=== PATIENT | male | born 1935 | race Caucasian/White ===

== ENCOUNTER → 2020-05-21 14:28 | Outpatient (BNVA) | payer MEDICARE, SELFPAY | PROVIDERS: PCP Internal Medicine; Visit Provider Internal Medicine | DX: I25.10 Atherosclerotic heart disease of native coronary artery without angina pectoris (principal); R77.8 Other specified abnormalities of plasma proteins; E78.5 Hyperlipidemia, unspecified | CPT/HCPCS: 93005; 99212 ==

== ENCOUNTER 2024-11-03 13:00 | Observation (INO) | payer MEDICARE, MEDICAID, SELFPAY ==
--- NOTE | ~2024-11-03 | XR_ITS ---
EXAMINATION: XR CHEST CLINICAL INFORMATION: AMS COMPARISON: March 14, 2018. TECHNIQUE: 2 views of the chest were obtained. FINDINGS: Mild prominence of the interstitial markings. No consolidation pleural effusion or pneumothorax. Cardiomediastinal silhouette appears mildly prominent with a round apex. Calcified plaque thoracic aorta and tortuosity. Multilevel thoracolumbar spondylosis with likely old wedge-shaped compression deformities in the mid to lower thoracic spine. Osteopenia versus osteoporosis. Degenerative changes in the shoulders with joint space narrowing, bilaterally. XR/XR chest 2V IMPRESSION: Mild interstitial lung edema in the correct clinical settings. 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 Multilevel spondylosis and old compression fracture deformities. Degenerative changes both shoulders suggesting chronic rotator cuff tendon tear. Electronically signed by: Jarod Baeza MD 11/03/2024 03:53 PM EDT
--- NOTE | ~2024-11-03 | CT_ITS ---
EXAMINATION: CT HEAD WITHOUT CONTRAST CLINICAL INFORMATION: AMS COMPARISON: September 05, 2012. TECHNIQUE: Contiguous axial imaging was performed from the skull base to vertex without intravenous administration of contrast. This CT examination was performed using dose optimization techniques as appropriate, variously including the following: *Automated exposure control *Adjustment of mA and/or kV according to patient size (this includes techniques or standardized protocols for targeted exams where dose is matched to indication/reason for exam; i.e. extremities or head) *Use of iterative reconstruction technique DLP: 569 mGy-cm FINDINGS: No acute intracranial hemorrhage, mass effect, midline shift, hydrocephalus or herniation. Prominence of the extra-axial CSF spaces cerebral sulci and ventricles likely central volume loss. Bilateral multifocal patchy deep periventricular white matter hypodensities involving centrum semiovale and potter radiata. Posterior cranial fossa contents demonstrated no acute hemorrhage or mass effect. [place]arg[place]-white matter differentiation is normal. Sellar/suprasellar region demonstrated no gross masses. Cerebellar tonsils demonstrated normal position. No air-fluid levels in the paranasal sinuses. Tympanic cavities and mastoid cells are aerated. Pneumatized right petrous apex, congenital. CT/CT head/brain wo IV con IMPRESSION: No acute intracranial hemorrhage. Small vessel occlusive disease. Mild bifrontal atrophy Electronically signed by: Jarod Baeza MD 11/03/2024 04:05 PM EDT
[2024-11-03 13:10] VITALS: BP 118/71; BP 125/63; PULSE 58; PULSE 62; RESP 16; TEMP 36.4; O2SAT 96; O2SAT 97; BMI 21.5
[2024-11-03 13:17] LABS: Glucose, Whole Blood 145 mg/dL (60-115)
[2024-11-03 13:36] VITALS: BP 125/63; PULSE 58; RESP 16; TEMP 36.4; O2SAT 97
--- NOTE | 2024-11-03 13:48 | ED_ITS ---
HPI - General Adult General Chief complaint: Altered Mental Status Stated complaint: AMS Time Seen by Provider: 11/03/24 13:48 Source: patient, EMS, RN notes reviewed and old records reviewed Mode of arrival: EMS Limitations: altered mental status History of Present Illness ED Provider: Jana HPI narrative: Patient is an 88-year-old male with history of alcohol dependence in remission, dysphagia, epilepsy, malignant neoplasm of glottis, unspecified dementia, anemia, atherosclerotic heart disease, hyperlipidemia, major depressive disorder, prior [place] presenting to the emergency department from [facility] after staff noted patient to be less responsive than baseline. Staff did report to EMS that patient is somewhat drowsy at baseline, however. His point of care glucose was noted to be 43 at that time and staff there administered 2 tubes of oral glucose. This increased his point of care glucose 263. EMS then administered D10 with improvement of point of care glucose to 128. Patient denies any pain or any other physical complaints currently. He is very drowsy, only wakes briefly to voice, assessment limited by this. MD complaint: AMS Related Data Home Medications ?Medication ?Instructions ?Recorded ?Confirmed acetaminophen 325 mg capsule 325 mg PO QID PRN 1 05/21/20 (Tylenol) aspirin 81 mg tablet,delayed 81 mg PO DAILY 05/21/20 0 05/21/20 release (Adult Low Dose Aspirin) atorvastatin 40 mg tablet 40 mg PO DAILY 05/21/2005/06 levetiracetam 500 mg tablet 500 mg PO BID 05/21/20 metoprolol tartrate 25 mg tablet 25 mg PO BID 05/21/20 05/21/20 sennosides 8.6 mg capsule (senna) 8.6 mg PO DAILY 05/0605/21/20 Allergies Allergy/AdvReac Type Severity Reaction Status Date / Time No Known Allergies (No Known Allergy Mild NOT Verified 11/03/24 13:12 Allergies*) APPLICABLE Review of Systems 2 Review of Systems: As per HPI Yes all other systems are reviewed and are negative Constitutional: Constitutional: Reports as per HPI [facility] Past Medical History Medical History (Updated 11/03/24 @ 17:20 by Sheyla Bates NP) Other and unspecified hyperlipidemia Atherosclerotic cardiovascular disease Elevated troponin Social History Social History (Updated 05/21/20 @ 14:36 by TANISHA Walter) Smoked in Last 30 Days: No Use of substances other than those prescribed or required for medical reasons: No Advance Directives: No Advance Directives Information Provided: No Do you have a plan to hurt others: No Plan Physical Exam ED Vital Signs: Vital Signs - 24 hr 11/03/24 13:10 11/03/24 13:36 11/03/24 16:06 Temperature 97.5 F 97.5 F 97.8 F Pulse Rate 58 58 57 Respiratory Rate 16 16 16 Blood Pressure 125/63 125/63 168/79 H Pulse Oximetry 97 97 97 Oxygen Delivery Method Nasal Cannula Nasal Cannula Room Air BMI result Body Mass Index 21.5 Vital signs have been reviewed and appear to be correct. Blood pressure normal. Heart rate normal. Respiratory rate normal. Temperature normal. Oxygen saturation normal. Const General: cooperative, no acute distress and ill appearing chronically Orientation/consciousness: oriented to person (baseline) Limitations: altered mental status HENMT Head: Yes normocephalic and Yes atraumatic Ears: external ears normal General nose exam: Normal external nose present Face and sinus: Yes face symmetric Mouth: oropharynx normal and moist mucous membranes Throat: Yes uvula midline Eyes Pupils: Equal, round and reactive pupils present Neck Neck: Yes normal visual inspection and Yes supple Resp Effort & Inspection: normal respiratory effort and able to speak in complete sentences Auscultation: clear to auscultation bilaterally Cardio Rate: regular rate Rhythm: regular rhythm Heart sounds: S1 normal heart sound present and S2 normal heart sound present GI Palpation (GI): Soft to palpation and nontender Auscultation: normoactive bowel sounds General: Yes no CVA tenderness Back/Spine/Pelvis Back: no CVA tenderness Skin General skin exam: elasticity normal and turgor normal Neuro General: oriented to person (baseline), moves all extremities, no focal motor deficits and CN's II-XI intact bilaterally Cranial nerves: Yes Equal, round and reactive pupils present Cognition (Neuro): normal cognition Extrem General: Yes full ROM, Yes no pedal edema and Yes no calf tenderness Psych Mental Status: mental status grossly normal Affect: normal affect Thought process: Normal thought process present Medical Decision Making Medical Decision Making MDM Narrative: Patient is a 69-year-old right-hand dominant Syriac-speaking male presenting to the emergency department with complaint of laceration to left hand which occurred 1 hour prior to arrival. On exam patient is awake, A+Ox3, VS WNL, afebrile, no focal neurological deficits, physical exam findings as above. Given reported symptoms and physical exam findings, initial differential includes but is not limited to hypoglycemia, other electrolyte abnormality, UTI, pneumonia, viral illness. Labs notable for no leukocytosis, no anemia, slight hyponatremia, normal glucose, no other significant electrolyte abnormalities, negative troponin. Viral serology negative. Urinalysis is without evidence of infection. X-ray chest notable for mild interstitial lung edema. My interpretation is in agreement with the radiologist's interpretation. Mental status improved while patient in the ED. Rectal temp normal. Repeat glucose of 56, will provide p.o. food and drink and recheck glucose. Case discussed with attending, Dr. Lucero, who is in agreement with this plan. Repeat glucose after eating and drinking was 58. Case discussed with SABA Evangelista hospitalist who accept patient for obs admission. Differential Diagnosis Differential Diagnoses: The differential diagnosis associated with the presentation includes As per [facility] Admission/Observation Consideration of admission/observation: Escalation of care including admission/observation considered Patient would have been admitted to the hospital had their clinical presentation warranted hospital admission. Consult Healthcare Provider Management of the patient was discussed with: Hospitalist Lab Data [facility] Lab Attestation statement: I reviewed the patient's lab results. as per [facility] 11/03/24 14:25 11/03/24 14:25 Labs: Lab Results 11/03/24 11/03/24 11/03/24 Range/Units 13:13 14:25 16:08 WBC 4.6 L (4.8-10.8) X10*3/uL RBC 4.12 L (4.60-5.80) X10*6/uL Hgb 12.8 L (14.0-18.0) g/dl Hct 36.3 L (42.0-52.0) % MCV 88.1 (80.0-98.0) fL MCH 31.1 (27.0-33.0) pg MCHC 35.3 (31.0-36.0) g/dl RDW 15.0 (11.0-16.0) % Plt Count 144 L (160-400) X10*3/uL MPV 10.8 (9.4-12.4) fL Immature Gran % (Auto) 0.4 (0.0-0.4) % Neut % (Auto) 84.1 H (45-73) % Lymph % (Auto) 7.3 L (20-40) % [place] % (Auto) 7.6 (2-11) % Eos % (Auto) 0.2 (0-4) % Baso % (Auto) 0.4 (0-2) % Lymph # (Auto) 0.3 L (1.2-4.9) X10*3/uL [place] # (Auto) 0.4 (0.1-1.2) X10*3/uL Eos # (Auto) 0.0 (0.0-0.4) X10*3/uL Baso # (Auto) 0.0 (0.0-0.2) X10*3/uL Abs Immat Gran (auto) 0.02 (0.00-0.03) X10*3/uL Absolute Neuts (auto) 3.9 (2.0-8.3) x10*3/uL Absolute Nucleated RBC 0.000 (0.0-0.012) X10*3/uL Nucleated RBC % (auto) 0.0 (0.0-0.2) /100WBC Sodium 132 L (135-145) mmol/L Potassium 3.8 (3.3-5.1) mmol/L Chloride 100 (96-108) mmol/L Carbon Dioxide 27 (22-29) mmol/L Anion Gap 9 L (12-20) BUN 15 (9-16) mg/dL Creatinine 0.72 (0.5-1.4) mg/dL Estim Creat Clear Calc 56.8 Estimated GFR > 60 POC Glucose 145 H (60-115) mg/dL Random Glucose 104 (60-115) mg/dL Lactic Acid 1.7 (0.5-2.0) mmol/L Calcium 8.6 (8.4-10.2) mg/dL Total Bilirubin 0.6 (0.0-1.0) mg/dL AST 23 (5-37) U/L ALT 15 (0-40) U/L Alkaline Phosphatase 79 (39-117) U/L Troponin I High Sens 5.1 (<3.5-35.0) ng/L Total Protein 7.0 (6.5-8.0) g/dL Albumin 4.2 (3.5-5.0) g/dL Urine Color Yellow Urine Appearance Clear Urine pH 7.0 (5.0-9.0) Ur Specific [place] 1.020 (1.005-1.025) Urine Protein Negative (Neg-Trace) mg/dL Urine Glucose (UA) 250 H (Negative) mg/dL Urine Ketones Negative (Negative) mg/dL Urine Blood Negative (Negative) Urine Nitrite Negative (Negative) Ur Leukocyte Esterase Negative (Negative) Urine Opiates Screen Not Detected (Not Detect) Ur Buprenorphine Scrn Not Detected (Not Detect) ng/mL Ur Oxycodone Screen Not Detected (Not Detect) ng/mL Urine Methadone Screen Not Detected (Not Detect) ng/mL Urine Fentanyl Screen Not Detected (Not Detect) Ur Barbiturates Screen Not Detected (Not Detect) Ur Phencyclidine Scrn Not Detected (Not Detect) Ur Amphetamines Screen Not Detected (Not Detect) U Benzodiazepines Scrn Not Detected (Not Detect) Urine Cocaine Screen Not Detected (Not Detect) U Marijuana (THC) Screen Not Detected (Not Detect) Ethyl Alcohol < 10 mg/dL Influenza Type A (PCR) NEGATIVE (Negative) Influenza Type B (PCR) NEGATIVE (Negative) RSV RNA Qual (PCR) NEGATIVE (Negative) SARS-CoV-2 RNA (RT-PCR) NEGATIVE (Negative) 11/03/24 11/03/24 Range/Units 17:11 17:42 WBC (4.8-10.8) X10*3/uL RBC (4.60-5.80) X10*6/uL Hgb (14.0-18.0) g/dl Hct (42.0-52.0) % MCV (80.0-98.0) fL MCH (27.0-33.0) pg MCHC (31.0-36.0) g/dl RDW (11.0-16.0) % Plt Count (160-400) X10*3/uL MPV (9.4-12.4) fL Immature Gran % (Auto) (0.0-0.4) % Neut % (Auto) (45-73) % Lymph % (Auto) (20-40) % [place] % (Auto) (2-11) % Eos % (Auto) (0-4) % Baso % (Auto) (0-2) % Lymph # (Auto) (1.2-4.9) X10*3/uL [place] # (Auto) (0.1-1.2) X10*3/uL Eos # (Auto) (0.0-0.4) X10*3/uL Baso # (Auto) (0.0-0.2) X10*3/uL Abs Immat Gran (auto) (0.00-0.03) X10*3/uL Absolute Neuts (auto) (2.0-8.3) x10*3/uL Absolute Nucleated RBC (0.0-0.012) X10*3/uL Nucleated RBC % (auto) (0.0-0.2) /100WBC Sodium (135-145) mmol/L Potassium (3.3-5.1) mmol/L Chloride (96-108) mmol/L Carbon Dioxide (22-29) mmol/L Anion Gap (12-20) BUN (9-16) mg/dL Creatinine (0.5-1.4) mg/dL Estim Creat Clear Calc Estimated GFR POC Glucose 52 L* 58 L* (60-115) mg/dL Random Glucose (60-115) mg/dL Lactic Acid (0.5-2.0) mmol/L Calcium (8.4-10.2) mg/dL Total Bilirubin (0.0-1.0) mg/dL AST (5-37) U/L ALT (0-40) U/L Alkaline Phosphatase (39-117) U/L Troponin I High Sens (<3.5-35.0) ng/L Total Protein (6.5-8.0) g/dL Albumin (3.5-5.0) g/dL Urine Color Urine Appearance Urine pH (5.0-9.0) Ur Specific [place] (1.005-1.025) Urine Protein (Neg-Trace) mg/dL Urine Glucose (UA) (Negative) mg/dL Urine Ketones (Negative) mg/dL Urine Blood (Negative) Urine Nitrite (Negative) Ur Leukocyte Esterase (Negative) Urine Opiates Screen (Not Detect) Ur Buprenorphine Scrn (Not Detect) ng/mL Ur Oxycodone Screen (Not Detect) ng/mL Urine Methadone Screen (Not Detect) ng/mL Urine Fentanyl Screen (Not Detect) Ur Barbiturates Screen (Not Detect) Ur Phencyclidine Scrn (Not Detect) Ur Amphetamines Screen (Not Detect) U Benzodiazepines Scrn (Not Detect) Urine Cocaine Screen (Not Detect) U Marijuana (THC) Screen (Not Detect) Ethyl Alcohol mg/dL Influenza Type A (PCR) (Negative) Influenza Type B (PCR) (Negative) RSV RNA Qual (PCR) (Negative) SARS-CoV-2 RNA (RT-PCR) (Negative) Independent Interpretation I performed an independent interpretation of an: Plain X-Ray Interpretation: No evidence of pneumonia on chest x-ray Radiology Impression Discussion of test interpretation with radiology: I have reviewed the radiologist's reading. Radiologist Impression: XR/XR chest 2V IMPRESSION: Mild interstitial lung edema in the correct clinical settings. 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 Multilevel spondylosis and old compression fracture deformities. Degenerative changes both shoulders suggesting chronic rotator cuff tendon tear. External Record Review External record reviewed: Inpatient record, Office record and Outpatient record Critical Care Time Critical Care Time Critical Care Time: Yes Total Critical Care Time: 42 Attestation: I have personally provided critical care time exclusive of time spent on separately billable procedures. Time includes review of lab data, radiology results, discussion with consultants, and monitoring for potential decompensation. Intervention performed as documented. Discharge Plan Discharge Patient Disposition: Admitted As Inpatient Print Language: Syriac
[2024-11-03 14:31] LABS: MANUAL DIFF FLAG NO
[2024-11-03 14:37] LABS: Hematocrit 36.3 % (42.0-52.0); Hemoglobin 12.8 g/dl (14.0-18.0); Imm Gran Abs Auto 0.02 X10*3/uL (0.00-0.03); Imm Gran Pct Auto 0.4 % (0.0-0.4); Lymphocytes Absolute Auto 0.3 X10*3/uL (1.2-4.9); Mean Corpuscular HGB Conc 35.3 g/dl (31.0-36.0); Mean Corpuscular Hemoglobin 31.1 pg (27.0-33.0); Mean Corpuscular Volume 88.1 fL (80.0-98.0); NRBC Abs Auto 0.000 X10*3/uL (0.0-0.012); NRBC Pct Auto 0.0 /100WBC (0.0-0.2); Platelet Count 144 X10*3/uL (160-400); Red Blood Count 4.12 X10*6/uL (4.60-5.80); White Blood Count 4.6 X10*3/uL (4.8-10.8)
[2024-11-03 14:49] LABS: Alanine Aminotransferase 15 U/L (0-40); Albumin Level 4.2 g/dL (3.5-5.0); Alkaline Phosphatase 79 U/L (39-117); Anion Gap 9 (12-20); Aspartate Amino Transferase 23 U/L (5-37); Blood Urea Nitrogen 15 mg/dL (9-16); Calcium 8.6 mg/dL (8.4-10.2); Carbon Dioxide 27 mmol/L (22-29); Chloride 100 mmol/L (96-108); Creatinine Clr Calc Pharmacy 56.8; Estimated Glomerular Filt Rate > 60; Potassium 3.8 mmol/L (3.3-5.1); Sodium 132 mmol/L (135-145); Total Protein 7.0 g/dL (6.5-8.0)
[2024-11-03 14:56] LABS: Troponin-I High Sensitivity 5.1 ng/L (<3.5-35.0)
[2024-11-03 15:13] LABS: Resp Syncy Virus RNA Qual PCR NEGATIVE (Negative); SARS COV2 PCR INHOUSE NEGATIVE (Negative)
[2024-11-03 16:06] VITALS: BP 168/79; PULSE 57; RESP 16; TEMP 36.6; O2SAT 97
--- OUTSIDE RECORDS SUMMARY | 2024-11-03 16:15 | XMS_ITS | Encounter Summary ---
Author Organization [facility] Address [address] [place] [id number] Care Team Providers Care Radio Engineer Name Role Phone Yifan Lizama MD Primary Care Provider [phone] Encounter Details Date Type Department Care Team (Late st Contact Info) Description 03/28/2024 Lab Requisition [facility] - Main Lab [address] [place] [address] Yifan Lizama MD [address] [facility] [address] [place], [phone] Unspecified convulsions (CMS/HCC V24, CMS/HCC V28) Social History Tobacco Use Types Packs/Day Years Used Date Smoking Tobacco: Never Assessed Sex and Gender Information Value Date Recorded Sex Assigned at Not on file Legal Sex Male 9:58 AM EST Gender Identity Not on file Sexual Orientation Not on file documented as of this encounter Plan of Treatment Not on file documented as of this encounter Procedures Procedure Name Priority Date/Time Associated Diagnosis Comments AMMONIA Routine 03/28/2024 11:21 AM EST Unspecified convulsions (CMS/HCC) documented in this encounter Results * Ammonia (03/28/2024 11:21 AM EST) Ammonia 29 11 - 35 mcmol/L LAB CHEMISTRY METHOD 03/28/2024 12:45 PM EST [facility] Blood Venous blood specimen / Unknown Venipuncture / Unknown 03/28/2024 11:21 AM EST 03/28/2024 12:15 PM EST us Yifan Lizama MD LAB BLOOD ORDERABLES Final Resul t [facility] [address] [place] [address], documented in this encounter Visit Diagnoses Diagnosis Unspecified convulsions (CMS/HCC V24, CMS/HCC V28) documented in this encounter Care Teams Radio Engineer Relationship Specialty Start Date End Date Yifan Lizama MD [address] [place] [address], [phone] PCP - General Family Medicine 04/03/24 documented as of this encounter
--- OUTSIDE RECORDS SUMMARY | 2024-11-03 16:15 | XMS_ITS | Clinical Summary ---
Author Organization [facility] Address [address] [place] [address] Care Team Providers Care Loan Auditor Name Role Phone Unavailable Primary Care Provider Unavailabl e Social History Tobacco Use Types Packs/Day Years Used Date Smoking Tobacco: Never Assessed Sex and Gender Information Value Date Recorded Sex Assigned at Not on file Gender Identity Not on file Sexual Orientation Not on file Plan of Treatment Not on file
[2024-11-03 16:16] LABS: Appearance Urine Clear; Glucose Urine UA 250 mg/dL (Negative); PH 7.0 (5.0-9.0); Specific Gravity - Urine 1.020 (1.005-1.025)
[2024-11-03 16:34] LABS: Cannabinoid Screen Urine Not Detected (Not Detect)
[2024-11-03 17:17] LABS: Glucose, Whole Blood 52 mg/dL (60-115)
[2024-11-03 17:46] LABS: Glucose, Whole Blood 58 mg/dL (60-115)
--- NOTE | 2024-11-03 18:07 | PHA.MEDREC ---
Addendum entered by Ingris Reyes RPh 11/03/24 18:44: Reviewed by [facility] Original Note: Pharmacy Consult ? Medication Reconciliation Pharmacy has completed the medication reconciliation. Utilized list from [facility].
--- NOTE | 2024-11-03 18:17 | PM.IMHP ---
History of Present Illness Date of Service: 11/03/24 Chief Complaint: Altered Mental Status 88-year-old male with advanced dementia, seizure disorder, GERD, coming from a fdc. Patient was brought in to be evaluated for altered mental status and was found to be hypoglycemic at the fdc. His sugar level was reported to be 43 and was given oral glucose with subsequent increase in sugar 263 he was then given a half an amp of D 50 with a glucose going up to 128. He was subsequently brought to the emergency room to be evaluated. Head CT showed no acute finding. Blood sugar dropped again to 52 and then 58. Emergency room treatment include dextrose 1 amp. Na started on a D10. He has no signs of infection. For retesting include TSH and hypoglycemia workup all pending. Patient does not have history of diabetes. He is hemodynamically stable with a normal temperature. Review of Systems Review of Systems: confused at baseline. Yes unobtainable due to endotracheal tube PMFSH Medical History (Updated 11/03/24 @ 17:20 by Sheyla Bates NP) Other and unspecified hyperlipidemia Atherosclerotic cardiovascular disease Elevated troponin Social History (Updated 05/21/20 @ 14:36 by TANISHA Walter) Household Members: Unknown / Unable to assess Housing: Unknown / Unable to assess Patient Tobacco Use Status: Tobacco use Unknown Smoked in Last 30 Days: No Use of substances other than those prescribed or required for medical reasons: No Currently Displaying Signs/Symptoms of Drug Intoxication Withdrawal: No Advance Directives: No Advance Directives Information Provided: No Do you have a plan to hurt others: No Plan Recently lost weight without trying: Unsure How much weight loss: Unsure Meds Allergies Allergy/AdvReac Type Severity Reaction Status Date / Time No Known Allergies (No Known Allergy Mild NOT Verified 11/03/24 13:12 Allergies*) APPLICABLE Active Medications: Current Medications Dextrose (D10) 1,000 mls @ 50 mls/hr IVCONT .Q20H [facility] Home Medications ?Medication ?Instructions ?Recorded ?Confirmed ?Last Taken ?Type aspirin 81 mg tablet,delayed 81 mg PO DAILY 05/21/20 11/03/24 Unknown History release (Adult Low Dose Aspirin) atorvastatin 40 mg tablet 40 mg PO DAILY 05/21/20 11/03/24 Unknown History metoprolol tartrate 25 mg tablet 25 mg PO BID 05/21/20 11/03/24 Unknown History sennosides 8.6 mg capsule (senna) 17.2 mg PO DAILY 05/21/20 11/03/24 Unknown History acetaminophen 325 mg tablet 650 mg PO Q6H PRN Fever/Pain 11/03/24 11/03/24 Unknown History acetaminophen 650 mg rectal 650 mg MA Q4H PRN Pain/Fever 11/03/24 11/03/24 Unknown History suppository bisacodyl 10 mg rectal suppository 10 mg MA DAILY PRN Constipation 11/03/24 11/03/24 Unknown History (Dulcolax (bisacodyl)) divalproex 500 mg tablet,delayed 500 mg PO BID 11/03/24 11/03/24 Unknown History release (Depakote) guaifenesin 100 mg/5 mL oral 200 mg PO Q4H PRN Cough 11/03/24 11/03/24 Unknown History liquid (Maricruz-Tussin) levetiracetam 1,000 mg tablet 1,000 mg PO BID 11/03/24 11/03/24 Unknown History levetiracetam 250 mg tablet 250 mg PO BID 11/03/24 11/03/24 Unknown History magnesium hydroxide 400 mg/5 mL 30 ml PO DAILY PRN Constipation 11/03/24 11/03/24 Unknown History oral suspension (Milk of Magnesia) naloxone 4 mg/actuation nasal 4 mg intranasal Q3M PRN Opioid 11/03/24 11/03/24 Unknown History spray (Narcan) Overdose omeprazole 20 mg tablet,delayed 20 mg PO DAILY@0630 11/03/24 11/03/24 Unknown History release ondansetron 4 mg disintegrating 4 mg PO Q6H PRN Nausea And Vomiting 11/03/24 11/03/24 Unknown History tablet sodium chloride 1,000 mg soluble 1,000 mg PO BID 11/03/24 11/03/24 Unknown History tablet sodium phosphates 19 gram-7 118 ml MA DAILY PRN Constipation 11/03/24 11/03/24 Unknown History gram/118 mL enema (Fleet Enema) Physical Exam Vital Signs and Narrative: Vital Signs: Last Vital Signs Temp 97.8 F 11/03/24 16:06 Pulse 57 11/03/24 16:06 Resp 16 11/03/24 16:06 BP 168/79 H 11/03/24 16:06 Pulse Ox 97 11/03/24 16:06 O2 Del Method Room Air 11/03/24 16:06 Oxygen Flow Rate 1 11/03/24 13:10 BMI result Body Mass Index 21.5 Const: Other: General: Awake, alert, confused? baseline, he's warm to touch HEENT: normal sclera Resp: CTA bilateral CVS: S1,S2,RRR GI: +BS, NT, no distention Skin: No rash, normal color warm Neuro: motor grossly intact, no focal deficit noted. Psych: flat affect Results Labs 11/04/24 05:24 11/04/24 05:24 Labs: Laboratory Results - last 24 hr 11/03/24 11/03/24 11/03/24 13:13 14:25 16:08 MCV 88.1 MCH 31.1 MCHC 35.3 RDW 15.0 Plt Count 144 L MPV 10.8 Immature Gran % (Auto) 0.4 Neut % (Auto) 84.1 H Lymph % (Auto) 7.3 L [place] % (Auto) 7.6 Eos % (Auto) 0.2 Baso % (Auto) 0.4 Lymph # (Auto) 0.3 L [place] # (Auto) 0.4 Eos # (Auto) 0.0 Baso # (Auto) 0.0 Abs Immat Gran (auto) 0.02 Absolute Neuts (auto) 3.9 Absolute Nucleated RBC 0.000 Nucleated RBC % (auto) 0.0 Anion Gap 9 L Estim Creat Clear Calc 56.8 Estimated GFR > 60 POC Glucose 145 H Random Glucose 104 Lactic Acid 1.7 Calcium 8.6 Total Bilirubin 0.6 AST 23 ALT 15 Alkaline Phosphatase 79 Total Protein 7.0 Albumin 4.2 Urine Color Yellow Urine Appearance Clear Urine pH 7.0 Ur Specific [place] 1.020 Urine Protein Negative Urine Glucose (UA) 250 H Urine Ketones Negative Urine Blood Negative Urine Nitrite Negative Ur Leukocyte Esterase Negative Urine Opiates Screen Not Detected Ur Buprenorphine Scrn Not Detected Ur Oxycodone Screen Not Detected Urine Methadone Screen Not Detected Urine Fentanyl Screen Not Detected Ur Barbiturates Screen Not Detected Ur Phencyclidine Scrn Not Detected Ur Amphetamines Screen Not Detected U Benzodiazepines Scrn Not Detected Urine Cocaine Screen Not Detected U Marijuana (THC) Screen Not Detected Ethyl Alcohol < 10 Influenza Type A (PCR) NEGATIVE Influenza Type B (PCR) NEGATIVE RSV RNA Qual (PCR) NEGATIVE SARS-CoV-2 RNA (RT-PCR) NEGATIVE 11/03/24 11/03/24 17:11 17:42 MCV MCH MCHC RDW Plt Count MPV Immature Gran % (Auto) Neut % (Auto) Lymph % (Auto) [place] % (Auto) Eos % (Auto) Baso % (Auto) Lymph # (Auto) [place] # (Auto) Eos # (Auto) Baso # (Auto) Abs Immat Gran (auto) Absolute Neuts (auto) Absolute Nucleated RBC Nucleated RBC % (auto) Anion Gap Estim Creat Clear Calc Estimated GFR POC Glucose 52 L* 58 L* Random Glucose Lactic Acid Calcium Total Bilirubin AST ALT Alkaline Phosphatase Total Protein Albumin Urine Color Urine Appearance Urine pH Ur Specific [place] Urine Protein Urine Glucose (UA) Urine Ketones Urine Blood Urine Nitrite Ur Leukocyte Esterase Urine Opiates Screen Ur Buprenorphine Scrn Ur Oxycodone Screen Urine Methadone Screen Urine Fentanyl Screen Ur Barbiturates Screen Ur Phencyclidine Scrn Ur Amphetamines Screen U Benzodiazepines Scrn Urine Cocaine Screen U Marijuana (THC) Screen Ethyl Alcohol Influenza Type A (PCR) Influenza Type B (PCR) RSV RNA Qual (PCR) SARS-CoV-2 RNA (RT-PCR) Imaging Radiologist's Impressions: Impressions Head CT 11/03/24 14:45 IMPRESSION: No acute intracranial hemorrhage. Small vessel occlusive disease. Mild bifrontal atrophy Electronically signed by: Jarod Baeza MD 11/03/2024 04:05 PM EDT RP Chest X-Ray 11/03/24 14:47 IMPRESSION: Mild interstitial lung edema in the correct clinical settings. 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 Multilevel spondylosis and old compression fracture deformities. Degenerative changes both shoulders suggesting chronic rotator cuff tendon tear. Electronically signed by: Jarod Baeza MD 11/03/2024 03:53 PM EDT RP Assessment and Plan (1) Hypoglycemia: Status: Acute Plan 88 year old male with dementia, seizure d/o here with hypoglycemia of unclear nature Persistent hypoglycemia in non-diabetic and no sigs of malnutrition, no sings of infection Dextrose IVF Hypglycemia panel Frequent sugar check check TSH, random cortisol Mild Hyponatremia, monitor Seizure d/o continue home seizure meds Diet: Regular and thin liquid per SNF record Code: DNR/DNI, MOLST on record Quality Stroke Does the patient have a stroke diagnosis?: No VTE Prior VTE?: No VTE Risk Level:: Medical - moderate - high VTE Device Contraindication: Treatment Not Indicated VTE Drug Contraindication: N/A - Med Ordered
[2024-11-03 18:31] LABS: Thyroid Stimulating Hormone 1.80 uIU/mL (0.32-4.0)
[2024-11-03 19:29] LABS: Glucose, Whole Blood 78 mg/dL (60-115)
[2024-11-03] MEDS: Dextrose 10 % 1,000 ML 50 ML IVCONT (19:48)
[2024-11-03 21:12] LABS: Glucose, Whole Blood 79 mg/dL (60-115)
[2024-11-03 21:16] VITALS: BP 189/92; PULSE 65; RESP 18; TEMP 36.1; O2SAT 99
[2024-11-03] MEDS: Sodium Chloride Tab 1 GM TABLET PO (21:34)
[2024-11-04 00:12] LABS: Glucose, Whole Blood 79 mg/dL (60-115)
[2024-11-04 03:14] VITALS: BP 126/67; PULSE 72; RESP 18; TEMP 36.5; O2SAT 94
[2024-11-04 03:17] LABS: Glucose, Whole Blood 102 mg/dL (60-115)
[2024-11-04 05:52] LABS: Alanine Aminotransferase 8 U/L (0-40); Albumin Level 3.2 g/dL (3.5-5.0); Alkaline Phosphatase 61 U/L (39-117); Anion Gap 10 (12-20); Aspartate Amino Transferase 17 U/L (5-37); Blood Urea Nitrogen 8 mg/dL (9-16); Calcium 7.9 mg/dL (8.4-10.2); Carbon Dioxide 25 mmol/L (22-29); Chloride 101 mmol/L (96-108); Creatinine Clr Calc Pharmacy 77.2; Estimated Glomerular Filt Rate > 60; Potassium 3.5 mmol/L (3.3-5.1); Sodium 132 mmol/L (135-145); Total Protein 5.4 g/dL (6.5-8.0)
[2024-11-04 05:53] LABS: Hemoglobin 11.7 g/dl (14.0-18.0); NRBC Abs Auto 0.000 X10*3/uL (0.0-0.012); NRBC Pct Auto 0.0 /100WBC (0.0-0.2); PLT CLUMP 1
[2024-11-04 05:55] LABS: Hematocrit 32.6 % (42.0-52.0); Mean Corpuscular HGB Conc 35.9 g/dl (31.0-36.0); Mean Corpuscular Hemoglobin 30.8 pg (27.0-33.0); Mean Corpuscular Volume 85.8 fL (80.0-98.0); Red Blood Count 3.80 X10*6/uL (4.60-5.80)
[2024-11-04 06:32] LABS: Platelet Count 123 X10*3/uL (160-400); White Blood Count 3.2 X10*3/uL (4.8-10.8)
[2024-11-04 07:22] LABS: Glucose, Whole Blood 101 mg/dL (60-115)
[2024-11-04 07:58] VITALS: BP 139/70; PULSE 57; RESP 14; TEMP 36.3; O2SAT 97
[2024-11-04] MEDS: Sodium Chloride Tab 1 GM TABLET PO ×2 (08:46→19:57)
[2024-11-04] MEDS: Aspirin Enteric Coated 81 MG TABLET.DR PO (08:46)
[2024-11-04 08:54] VITALS: PULSE 68
--- NOTE | 2024-11-04 10:22 | HO.PM.IMPN ---
Subjective Subjective Date of Service: 11/04/24 Physical Exam Vital Signs: Vital Signs: Last Vital Signs Temp 97.3 F 11/04/24 07:58 Pulse 68 11/04/24 08:54 Resp 14 11/04/24 07:58 BP 139/70 11/04/24 07:58 Pulse Ox 97 11/04/24 07:58 O2 Del Method Room Air 11/04/24 07:58 Oxygen Flow Rate 1 11/03/24 13:10 BMI result Body Mass Index 21.5 Const: Other: General: Awake, alert, confused? baseline, he's warm to touch HEENT: normal sclera Resp: CTA bilateral CVS: S1,S2,RRR GI: +BS, NT, no distention Skin: No rash, normal color warm Neuro: motor grossly intact, no focal deficit noted. Psych: flat affect Objective Data Active Medications Acetaminophen (Acetaminophen 325 Mg Tablet) 650 mg PO Q6H PRN PRN Reason: Pain, Mild 1-3,fever,headache Acetaminophen (Acetaminophen Supp 650 Mg Supp.Rect) 650 mg NE Q4H PRN PRN Reason: Pain/Fever Aspirin (Aspirin Enteric Coated 81 Mg Tablet.) 81 mg PO DAILY [facility] Last Admin: 11/04/24 08:46 Dose: 81 mg Documented By: MAKEDA Atorvastatin Calcium (Atorvastatin Calcium 40 Mg Tablet) 40 mg PO DAILY [facility] Last Admin: 11/04/24 08:46 Dose: 40 mg Documented By: MAKEDA Bisacodyl (Bisacodyl 10 Mg Supp.Rect) 10 mg NE DAILY PRN PRN Reason: If no BM after taking M.o.M Bisacodyl (Bisacodyl 10 Mg Supp.Rect) 10 mg NE DAILY PRN PRN Reason: Constipation Calcium Carbonate (Calcium Carbonate 750 Mg Tab.Chew) 750 mg PO Q4H PRN PRN Reason: Heartburn Divalproex Sodium (Divalproex Sodium 500 Mg Tablet.) 500 mg PO BID [facility] Last Admin: 11/04/24 08:46 Dose: 500 mg Documented By: MAKEDA Enoxaparin Sodium (Enoxaparin Sodium 40 Mg/0.4 Ml Syringe) 40 mg SUBCUT Q24H [facility] Last Admin: 11/03/24 19:41 Dose: 40 mg Documented By: HO.BENITR Guaifenesin (Guaifenesin 200 Mg/10 Ml 10 Ml Liquid) 10 ml PO Q4H PRN PRN Reason: Cough Dextrose (D10) 1,000 mls @ 50 mls/hr IVCONT .Q20H [facility] Last Infusion: 11/04/24 09:40 Dose: 0 mls/hr Documented By: MAKEDA Levetiracetam (Levetiracetam 1,000 Mg Tablet) 1,000 mg PO BID [facility] Last Admin: 11/04/24 08:47 Dose: 1,000 mg Documented By: MAKEDA Levetiracetam (Levetiracetam 250 Mg Tablet) 250 mg PO BID [facility] Last Admin: 11/04/24 08:47 Dose: 250 mg Documented By: MAKEDA Magnesium Hydroxide (Milk Of Magnesia 30 Ml Oral.Susp) 30 ml PO DAILY PRN PRN Reason: Constipation Magnesium Hydroxide (Milk Of Magnesia 30 Ml Oral.Susp) 30 ml PO DAILY PRN PRN Reason: Constipation Melatonin (Melatonin 3 Mg Tablet) 6 mg PO BEDTIME PRN PRN Reason: Insomnia Metoprolol Tartrate (Metoprolol Tartrate 25 Mg Tablet) 25 mg PO BID [facility]; Protocol Last Admin: 11/04/24 08:54 Dose: 25 mg Documented By: MAKEDA Naloxone HCl (Naloxone Hcl Nasal 4 Mg [place]) 4 mg NOSTRILALT Q3M PRN PRN Reason: Opioid Overdose Omeprazole (Omeprazole 20 Mg Capsule.Dr) 20 mg PO DAILY@0630 [facility] Last Admin: 11/04/24 06:08 Dose: 20 mg Documented By: YARI Ondansetron HCl (Ondansetron Odt 4 Mg Tab.Rapdis) 4 mg TRANSLINGU Q6H PRN PRN Reason: Nausea and Vomiting Senna (Sennosides 8.6 Mg Tablet) 17.2 mg PO DAILY [facility] Last Admin: 11/04/24 08:47 Dose: 17.2 mg Documented By: MAKEDA Sodium Biphosphate/Sodium Phosphate (Sodium Phosphate,[place]-Dibasic 133 Ml Enema) 118 ml NE DAILY PRN PRN Reason: Constipation Sodium Chloride (0.9 % Sodium Chloride Flush 3 Ml Syringe) 3 ml IVFLUSH QSHIFT [facility] Last Admin: 11/04/24 08:48 Dose: Not Given Documented By: MAKEDA Non-Admin Reason: IV Running Sodium Chloride (Sodium Chloride Tab 1 Gm Tablet) 1 gm PO BID [facility] Last Admin: 11/04/24 08:46 Dose: 1 gm Documented By: MAKEDA Labs 11/04/24 05:24 11/04/24 05:24 Labs: Laboratory Results - last 24 hr 11/03/24 11/03/24 11/03/24 13:13 14:25 16:08 MCV 88.1 MCH 31.1 MCHC 35.3 RDW 15.0 Plt Count 144 L MPV 10.8 Immature Gran % (Auto) 0.4 Neut % (Auto) 84.1 H Lymph % (Auto) 7.3 L [place] % (Auto) 7.6 Eos % (Auto) 0.2 Baso % (Auto) 0.4 Lymph # (Auto) 0.3 L [place] # (Auto) 0.4 Eos # (Auto) 0.0 Baso # (Auto) 0.0 Abs Immat Gran (auto) 0.02 Absolute Neuts (auto) 3.9 Absolute Nucleated RBC 0.000 Nucleated RBC % (auto) 0.0 Anion Gap 9 L Estim Creat Clear Calc 56.8 Estimated GFR > 60 POC Glucose 145 H Random Glucose 104 Lactic Acid 1.7 Calcium 8.6 Total Bilirubin 0.6 AST 23 ALT 15 Alkaline Phosphatase 79 Total Protein 7.0 Albumin 4.2 TSH 1.80 Urine Color Yellow Urine Appearance Clear Urine pH 7.0 Ur Specific [place] 1.020 Urine Protein Negative Urine Glucose (UA) 250 H Urine Ketones Negative Urine Blood Negative Urine Nitrite Negative Ur Leukocyte Esterase Negative Urine Opiates Screen Not Detected Ur Buprenorphine Scrn Not Detected Ur Oxycodone Screen Not Detected Urine Methadone Screen Not Detected Urine Fentanyl Screen Not Detected Ur Barbiturates Screen Not Detected Ur Phencyclidine Scrn Not Detected Ur Amphetamines Screen Not Detected U Benzodiazepines Scrn Not Detected Urine Cocaine Screen Not Detected U Marijuana (THC) Screen Not Detected Ethyl Alcohol < 10 Influenza Type A (PCR) NEGATIVE Influenza Type B (PCR) NEGATIVE RSV RNA Qual (PCR) NEGATIVE SARS-CoV-2 RNA (RT-PCR) NEGATIVE 11/03/24 11/03/24 11/03/24 17:11 17:42 19:26 MCV MCH MCHC RDW Plt Count MPV Immature Gran % (Auto) Neut % (Auto) Lymph % (Auto) [place] % (Auto) Eos % (Auto) Baso % (Auto) Lymph # (Auto) [place] # (Auto) Eos # (Auto) Baso # (Auto) Abs Immat Gran (auto) Absolute Neuts (auto) Absolute Nucleated RBC Nucleated RBC % (auto) Anion Gap Estim Creat Clear Calc Estimated GFR POC Glucose 52 L* 58 L* 78 Random Glucose Lactic Acid Calcium Total Bilirubin AST ALT Alkaline Phosphatase Total Protein Albumin TSH Urine Color Urine Appearance Urine pH Ur Specific [place] Urine Protein Urine Glucose (UA) Urine Ketones Urine Blood Urine Nitrite Ur Leukocyte Esterase Urine Opiates Screen Ur Buprenorphine Scrn Ur Oxycodone Screen Urine Methadone Screen Urine Fentanyl Screen Ur Barbiturates Screen Ur Phencyclidine Scrn Ur Amphetamines Screen U Benzodiazepines Scrn Urine Cocaine Screen U Marijuana (THC) Screen Ethyl Alcohol Influenza Type A (PCR) Influenza Type B (PCR) RSV RNA Qual (PCR) SARS-CoV-2 RNA (RT-PCR) 11/03/24 11/03/24 11/04/24 21:07 23:31 03:10 MCV MCH MCHC RDW Plt Count MPV Immature Gran % (Auto) Neut % (Auto) Lymph % (Auto) [place] % (Auto) Eos % (Auto) Baso % (Auto) Lymph # (Auto) [place] # (Auto) Eos # (Auto) Baso # (Auto) Abs Immat Gran (auto) Absolute Neuts (auto) Absolute Nucleated RBC Nucleated RBC % (auto) Anion Gap Estim Creat Clear Calc Estimated GFR POC Glucose 79 79 102 Random Glucose Lactic Acid Calcium Total Bilirubin AST ALT Alkaline Phosphatase Total Protein Albumin TSH Urine Color Urine Appearance Urine pH Ur Specific [place] Urine Protein Urine Glucose (UA) Urine Ketones Urine Blood Urine Nitrite Ur Leukocyte Esterase Urine Opiates Screen Ur Buprenorphine Scrn Ur Oxycodone Screen Urine Methadone Screen Urine Fentanyl Screen Ur Barbiturates Screen Ur Phencyclidine Scrn Ur Amphetamines Screen U Benzodiazepines Scrn Urine Cocaine Screen U Marijuana (THC) Screen Ethyl Alcohol Influenza Type A (PCR) Influenza Type B (PCR) RSV RNA Qual (PCR) SARS-CoV-2 RNA (RT-PCR) 11/04/24 11/04/24 05:24 07:10 MCV 85.8 MCH 30.8 MCHC 35.9 RDW 14.9 Plt Count 123 L MPV 10.9 Immature Gran % (Auto) Neut % (Auto) Lymph % (Auto) [place] % (Auto) Eos % (Auto) Baso % (Auto) Lymph # (Auto) [place] # (Auto) Eos # (Auto) Baso # (Auto) Abs Immat Gran (auto) Absolute Neuts (auto) Absolute Nucleated RBC 0.000 Nucleated RBC % (auto) 0.0 Anion Gap 10 L Estim Creat Clear Calc 77.2 Estimated GFR > 60 POC Glucose 101 Random Glucose 102 Lactic Acid Calcium 7.9 L D Total Bilirubin 0.7 AST 17 ALT 8 Alkaline Phosphatase 61 Total Protein 5.4 L Albumin 3.2 L TSH Urine Color Urine Appearance Urine pH Ur Specific [place] Urine Protein Urine Glucose (UA) Urine Ketones Urine Blood Urine Nitrite Ur Leukocyte Esterase Urine Opiates Screen Ur Buprenorphine Scrn Ur Oxycodone Screen Urine Methadone Screen Urine Fentanyl Screen Ur Barbiturates Screen Ur Phencyclidine Scrn Ur Amphetamines Screen U Benzodiazepines Scrn Urine Cocaine Screen U Marijuana (THC) Screen Ethyl Alcohol Influenza Type A (PCR) Influenza Type B (PCR) RSV RNA Qual (PCR) SARS-CoV-2 RNA (RT-PCR) Assessment and Plan (1) Hypoglycemia: Status: Acute Plan 88 year old male with dementia, seizure d/o here with hypoglycemia of unclear nature Persistent hypoglycemia in non-diabetic and no sigs of malnutrition, no sings of infection Dextrose IVF, titrate off Hypglycemia panel pending Frequent sugar check TSH normal, no other sigs of adrenal insu Mild Hyponatremia, 132 stable Seizure d/o continue home seizure meds Diet: Regular and thin liquid per SNF record Code: DNR/DNI, MOLST on record Quality Stroke Does the patient have a stroke diagnosis?: No VTE Prior VTE?: No VTE Risk Level:: Medical - moderate - high VTE Device Contraindication: Treatment Not Indicated VTE Drug Contraindication: N/A - Med Ordered
[2024-11-04 10:49] LABS: Glucose, Whole Blood 100 mg/dL (60-115)
[2024-11-04 13:06] LABS: Glucose, Whole Blood 82 mg/dL (60-115)
--- NOTE | 2024-11-04 14:13 | PC.NURSE ---
IV fluids paused this morning and POC checked 1 hour after pausing IV fluids per Dr. uGtierrez- result WNL. notified. POC re-checked approximately 2 hours later per provider with result decreased, but remained WNL. MD notified. POC re-checked approximately 1 hour later per provider. Results remain WNL. noftified. Patient remains awake and alert. Answering questions appropriately. See MAR and Lab/Chemistry results for details.
[2024-11-04 14:23] LABS: Glucose, Whole Blood 87 mg/dL (60-115)
[2024-11-04 16:00] VITALS: BP 127/73; PULSE 60; RESP 14; TEMP 36.1; O2SAT 96
[2024-11-04 17:54] LABS: Glucose, Whole Blood 124 mg/dL (60-115)
[2024-11-04 19:47] VITALS: BP 101/65; PULSE 59; RESP 12; TEMP 36.4; O2SAT 97
[2024-11-04 19:57] VITALS: BP 124/69; PULSE 61
[2024-11-04] MEDS: 0.9 % Sodium Chloride Flush 3 ML SYRINGE IVFLUSH (20:01)
[2024-11-04 20:39] LABS: Glucose, Whole Blood 135 mg/dL (60-115)
[2024-11-05 03:10] VITALS: BP 119/58; PULSE 59; RESP 18; TEMP 36.4; O2SAT 92
[2024-11-05 07:22] LABS: Glucose, Whole Blood 105 mg/dL (60-115)
[2024-11-05 07:32] VITALS: BP 136/70; PULSE 60; RESP 12; TEMP 36.3; O2SAT 91
[2024-11-05] MEDS: Sodium Chloride Tab 1 GM TABLET PO (08:18)
[2024-11-05] MEDS: 0.9 % Sodium Chloride Flush 3 ML SYRINGE IVFLUSH (08:18)
[2024-11-05] MEDS: Aspirin Enteric Coated 81 MG TABLET.DR PO (08:18)
[2024-11-05 08:24] VITALS: O2SAT 93
--- NOTE | 2024-11-05 08:43 | PM.DS ---
DS: Providers Provider Date of Service: 11/05/24 Date of admission: 11/03/24 17:50 Date of discharge: 11/05/24 Primary care physician: Dilma Lizama DO DS: Diagnosis Discharge Diagnosis (1) Hypoglycemia: Status: Acute DS: Summary Hospital Course Hospital Course: Chief Complaint: Altered Mental Status 88-year-old male with advanced dementia, seizure disorder, GERD, coming from a [place] [facility]. Patient was brought in to be evaluated for altered mental status and was found to be hypoglycemic at the [place] [facility] [place]. His sugar level was reported to be 43 and was given oral glucose with subsequent increase in sugar 263 he was then given a half an amp of D 50 with a glucose going up to 128. He was subsequently brought to the emergency room to be evaluated. Head CT showed no acute finding. Blood sugar dropped again to 52 and then 58. Emergency room treatment include dextrose 1 amp. Na started on a D10. He has no signs of infection. For retesting include TSH and hypoglycemia workup all pending. Patient does not have history of diabetes. He is hemodynamically stable with a normal temperature. Hospital course: 88 year old male with dementia, seizure d/o here with hypoglycemia of unclear nature and metabolic encephalopathy. He is non diabetic. He was give IV dexpresose in ED and upon admission was given D10 overnight, and by the next morning was discontinued and subsequently monitored for another 24 hours now without further episode of hypoglycemia. Etiology is of hypoglycemia is unclear but likely from not eating well as stated by family. Hypoglycemia panel is pending. TSH, LFTs were normal. He should periodic sugar check, espcieally with altered mental status. last sugar at 11 today 107 Mild Hyponatremia, 132 stable Seizure d/o continue home seizure meds Diet: Regular and thin liquid per SNF record Code: DNR/DNI, MOLST on record Time Attestation Discharge Coordination Time (in mins): 40 Quality: Safe Use of Opioids Does Pt have an Active Cancer Diagnosis on the Problem List?: No Quality: Stroke Does the patient have a stroke diagnosis?: No Physical Exam Vital Signs: Vital Signs: Last Vital Signs Temp 97.4 F 11/05/24 07:32 Pulse 60 11/05/24 07:32 Resp 12 11/05/24 07:32 BP 136/70 11/05/24 07:32 Pulse Ox 93 11/05/24 08:24 O2 Del Method Room Air 11/05/24 08:24 Oxygen Flow Rate 1 11/03/24 13:10 BMI result Body Mass Index 21.5 Const: Other: General: Awake, alert, confused? baseline, he's warm to touch HEENT: normal sclera Resp: CTA bilateral CVS: S1,S2,RRR GI: +BS, NT, no distention Skin: No rash, normal color warm Neuro: motor grossly intact, no focal deficit noted. Psych: flat affect DS: Data Data Completed and Pending Labs on day of discharge: Laboratory Results - last 24 hr 11/04/24 11/04/24 11/04/24 10:44 13:00 14:17 POC Glucose 100 82 87 11/04/24 11/04/24 11/05/24 17:47 20:28 07:13 POC Glucose 124 H 135 H 105 Preliminary micro results at discharge 11/03/24 14:25 Blood Culture - Preliminary Blood - Venous No growth after 24 hours. 11/03/24 14:25 Blood Culture - Preliminary Blood - Venous No growth after 24 hours. Discharge Plan Discharge Patient Disposition: [facility] Discharge Diagnosis: Acute hypoglycemia Referrals: Dilma Lizama DO [Primary Care Provider, Cardiology] - 1 Week Discharge Medications: Continued acetaminophen 325 mg Tablet 650 mg PO Q6H PRN (Reason: Fever/Pain) acetaminophen 650 mg Suppository 650 mg MI Q4H PRN (Reason: Pain/Fever) divalproex [Depakote] 500 mg Tablet,Delayed Release (Dr/Ec) 500 mg PO BID guaifenesin [Maricruz-Tussin] 100 mg/5 mL Liquid 200 mg PO Q4H PRN (Reason: Cough) magnesium hydroxide [Milk of Magnesia] 400 mg/5 mL Suspension 30 ml PO DAILY PRN (Reason: Constipation) Rx Instructions: NO Bm in 9 days. levetiracetam 250 mg tablet 250 mg PO BID bisacodyl [Dulcolax (bisacodyl)] 10 mg Suppository 10 mg MI DAILY PRN (Reason: Constipation) Fleet Enema 19-7 gram/118 mL Enema 118 ml MI DAILY PRN (Reason: Constipation) ondansetron 4 mg Tablet,Disintegrating 4 mg PO Q6H PRN (Reason: Nausea And Vomiting) sodium chloride 1,000 mg Tablet,Soluble 1,000 mg PO BID levetiracetam 1,000 mg tablet 1,000 mg PO BID omeprazole 20 mg Tablet,Delayed Release (Dr/Ec) 20 mg PO DAILY@0630 naloxone [Narcan] 4 mg/actuation [place],Non-Aerosol 4 mg INTRANASAL Q3M PRN (Reason: Opioid Overdose) Rx Instructions: spray 1 dose into ONE nostril; alternate nostrils w each dose until help arrives metoprolol tartrate 25 mg tablet 25 mg PO BID atorvastatin 40 mg tablet 40 mg PO DAILY aspirin [Adult Low Dose Aspirin] 81 mg tablet,delayed release (DR/EC) 81 mg PO DAILY senna 8.6 mg capsule 17.2 mg PO DAILY Discharge Orders: Discharge Order (Routine); Ordered 11/05/24 Ordered By: Izaiah Gutierrez Diet: Resume prior diet Activity on Discharge: As tolerated Stand Alone Forms: Patient Portal Discharge page Print Language: Unable To Collect Care Plan Goals: recovery from hypoglycemia Health Concerns: Hypglycemia Plan of Treatment: Should have sugar level check on regular basis and should have regular meals check sugars daily for next 3 days, in the morning Assessment: see above
[2024-11-05 11:29] LABS: Glucose, Whole Blood 107 mg/dL (60-115)
--- NOTE | 2024-11-05 13:30 | MHC.CM.PN ---
Addendum entered by Robyn Puga 11/05/24 13:35: CORRECTION: VM LEFT REGARDING OBSERVATION STATUS Original Note: PT IS A LTC RESIDENT OF [facility] [place] CM SPOKE TO LIAISON AT SNF YESTERDAY REQUESTING A COPY OF PTS HCP BE FAXED LEFT ANOTHER MESSAGE TODAY REQUESTING THE HCP BE FAXED LEFT FOR PTS PRIMARY CONTACT, GURINDER [phone] PCP: CHRISTINA HARE LEFT REGARDING IMM PT CLEARED TO DC BACK TO [facility] TODAY TRANSPORT BOOKED FOR 1500 HOURS WITH KARINA DC TIME INCLUDED IN VM FOR GURINDER
[2024-11-05 15:15] VITALS: BP 134/68; PULSE 58; RESP 14; TEMP 36.4; O2SAT 94
== END 2024-11-05 15:24 | disposition skilled nursing facility (03) ==
LOC: HO.ED 17:50 → HO.EDOVER 17:55 → HO.S3 19:04
PROVIDERS: Emergency Medicine Emergency Medical Services; Registered Nurse Emergency; Admitting Provider Student in an Organized Health Care Education/Training Program; Emergency Provider Emergency Medicine; PCP Family Medicine; Visit Provider Internal Medicine
DX: E16.2 Hypoglycemia, unspecified (principal); R41.82 Altered mental status, unspecified; E87.1 Hypo-osmolality and hyponatremia; G40.909 Epilepsy, unspecified, not intractable, without status epilepticus; D64.9 Anemia, unspecified; F03.90 Unspecified dementia, unspecified severity, without behavioral disturbance, psychotic disturbance, mood disturbance, and anxiety; R13.10 Dysphagia, unspecified; F10.21 Alcohol dependence, in remission; E78.5 Hyperlipidemia, unspecified; F32.9 Major depressive disorder, single episode, unspecified; I25.2 Old myocardial infarction; K21.9 Gastro-esophageal reflux disease without esophagitis; Z79.899 Other long term (current) drug therapy; Z03.818 Encounter for observation for suspected exposure to other biological agents ruled out
CPT/HCPCS: 36415; 70450; 71046; 80053; 80307; 80337; 81003; 82947; 83605; 84443; 84484; 85025; 85027; 87040; 87637; 96365; 96366; 96372; 99221; 99285; J1650

== ENCOUNTER → 2024-11-03 14:03 | Outpatient (BNV) | payer MEDICARE, SELFPAY | PROVIDERS: Emergency Provider Emergency Medicine Emergency Medical Services; Visit Provider Radiology Diagnostic Radiology | DX: R41.82 Altered mental status, unspecified (principal); J84.9 Interstitial pulmonary disease, unspecified | CPT/HCPCS: 70450; 71046 ==

== ENCOUNTER → 2024-11-03 17:50 | Outpatient (BNV) | payer MEDICARE, MEDICAID, SELFPAY | PROVIDERS: Admitting Provider Student in an Organized Health Care Education/Training Program; Emergency Provider Emergency Medicine; PCP Internal Medicine; Visit Provider Internal Medicine | DX: E16.2 Hypoglycemia, unspecified (principal) | CPT/HCPCS: 99223; 99232; 99239 ==